=== PATIENT | male | born 1950 | race Caucasian/White ===

== ENCOUNTER 2020-07-08 09:16 | Outpatient (CLI) | payer MEDICARE ==
--- NOTE | 2020-07-08 13:49 | PET ---
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 Exam was requeste d for initial staging. TECHNIQUE: PET scan with CT attenuation correction was performed from the vertex through the proximal thighs fol lowing the intravenous administration of 10 millicuries of 15-fluorodeoxyglycose. COMPARISON: None. CORRELATION: CT neck of 05/20/20. FINDINGS: There is increased FDG localization in the base of the tongue mass with an SUV of 13.5. Mariam hyperme tabolism in the left level IIA lymph nodes has an SUV of 9.4 and the right level IIA lymph nodes have an SUV of 3.6. No mariam hypermetabolism is seen in the chest, axillae, abdomen or pelvis. No hypermetabolic pulmonary nodules, liver, adrenals, skeletal lesions are identified. There is a foc us of intense uptake in the region of the distal stomach/antrum with an SUV of 8.2. Physiologic activity is seen in the brain, GI and tracts. The CT scan used for attenuation correction demonstrates no evidence of pleural effusions, pericardia l effusions, or ascites. There are tiny nonobstructing left renal calculi. IMPRESSION: 1. Base of the tongue malignancy with bilateral level IIA lymph mariam metastases. 2. Focally intense uptake in the gastric antrum should be evaluated with endoscopy. 3. Nonobstructing tiny left renal calculi. POS: PIETER
== END 2020-07-08 09:17 | disposition home or self-care (01) ==
LOC: PET 09:16
PROVIDERS: ATTEND Internal Medicine Hematology & Oncology
DX: C01 Malignant neoplasm of base of tongue (principal); C77.9 Secondary and unspecified malignant neoplasm of lymph node, unspecified; N20.0 Calculus of kidney
CPT/HCPCS: 78815; A9552

== ENCOUNTER 2020-07-15 08:54 | Outpatient (CLI) | payer MEDICARE ==
[2020-07-16 15:08] LABS: SARS-CoV-2 MS2 Positive; SARS-CoV-2 N Gene Negative; SARS-CoV-2 S Gene Negative; SARS-CoV-2 by NAA Not Detected (NotDetected); SARS-CoV-2 orf1ab Negative
== END 2020-07-15 08:55 | disposition home or self-care (01) ==
LOC: LABBT 08:54
PROVIDERS: ATTEND Internal Medicine Gastroenterology
DX: C02.9 Malignant neoplasm of tongue, unspecified (principal); R13.19 Other dysphagia; R93.3 Abnormal findings on diagnostic imaging of other parts of digestive tract; Z98.84 Bariatric surgery status; Z20.828 Contact with and (suspected) exposure to other viral communicable diseases
CPT/HCPCS: 87635; U0003

== ENCOUNTER 2020-07-16 13:05 | Observation (INO) | payer MEDICARE ==
[2020-07-15 12:44] VITALS: BMI 34.4
--- NOTE | 2020-07-16 15:43 | RAD ---
SUPINE ABDOMEN: 07/16/20 HISTORY: Preop. LAP band is noted. Catheter appears intact. Bowel gas pattern unremarkable. No mass effect IMPRESSION: Unremarkable bowel gas pattern. POS: AH
[2020-07-16] MEDS: Lisinopril 20 MG TAB PO SCH (20:23)
[2020-07-16] MEDS: hydrALAZINE 25 MG TAB PO SCH (20:24)
[2020-07-16] MEDS ORDERED: Montelukast Sodium 10 mg Tablet PO SCH (21:00)
[2020-07-16] MEDS ORDERED: Atorvastatin Calcium 20 MG TAB PO SCH (21:00)
[2020-07-17] MEDS ORDERED: Ondansetron HCl/PF 4 MG/2 ML Vial IVP PRN (07:47)
[2020-07-17] MEDS ORDERED: Promethazine HCl 25 MG/ML VIAL IM PRN (07:47)
[2020-07-17] MEDS ORDERED: Morphine Sulfate 2 MG/ML SYRINGE SLOW IVP PRN (07:47)
[2020-07-17] MEDS ORDERED: Promethazine HCl 25 MG/ML VIAL SLOW IVP PRN (07:47)
[2020-07-17] MEDS ORDERED: metFORMIN 500 MG TAB PO SCH (08:00)
[2020-07-17] MEDS ORDERED: Hydrochlorothiazide 25 MG TAB PO SCH (09:00)
[2020-07-17] MEDS ORDERED: Amlodipine 10 MG TAB PO SCH (09:00)
[2020-07-17] MEDS ORDERED: FLU VACC QS2020-21(65YR UP)/PF 240 MCG/0.7 ML SYRINGE IM ONE (09:00)
[2020-07-17] MEDS ORDERED: Morphine 2 MG/ML VIAL SLOW IVP PRN (09:09)
[2020-07-17] MEDS ORDERED: PROPOFOL 200 MG/20 ML VIAL ONE (09:43)
[2020-07-17] MEDS ORDERED: Lidocaine 1% PF 5 ML VIAL ONE (09:43)
[2020-07-17] MEDS: Lisinopril 20 MG TAB PO SCH (09:59)
[2020-07-17] MEDS: hydrALAZINE 25 MG TAB PO SCH (09:59)
[2020-07-17 11:15] VITALS: BP 135/83; TEMP 98.2
[2020-07-17] MEDS ORDERED: Ketorolac Tromethamine 30 MG/ML VIAL ONE (14:25)
[2020-07-17] MEDS ORDERED: Ketorolac Tromethamine 30 MG/ML VIAL IVP PRN (14:42)
--- NOTE | 2020-07-17 16:34 | DIS ---
DATE OF ADMISSION: 07/16/2020 DATE OF DISCHARGE: 07/17/2020 PROCEDURES: EGD with biopsy of Thrasher's, removal of gastric polyp by snare polypectomy x2, and PEG tube placement. HOSPITAL COURSE: Mr. Paige was admitted to 23-hour observation as OR could not get him on the schedule on Sunday afternoon for a PEG tube and EGD. 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 The procedure was performed this morning and the patient did well. He has had teaching for PEG tube use. He does not need that right now, so the plan is for him to go home today, resume his home medicines and see the [facility] when he next follows up there. Precautions for infection, bleeding, pain were all discussed with the patient. He has my phone number and call me if there are any problems over the weekend. Otherwise, he will follow up in the office next week. Pending at time of discharge are his biopsies. Job ID: [id number]
--- NOTE | 2020-07-18 19:44 | OP ---
DATE OF PROCEDURE: 07/17/2020 PREPROCEDURE DIAGNOSES: 1. Pharyngeal cancer with impending need for radiation and chemotherapy, requested a PEG tube by Oncology. 2. PET scan showed enhancement in the stomach. 3. Previous gastric band. POSTPROCEDURE DIAGNOSES: 1. Short-segment Thrasher esophagus, biopsied. 2. A small hemorrhagic polyp, friable in the proximal stomach above the band location, removed by hot snare polypectomy and submitted to Pathology. 3. Smooth mucosa-like polyp below the gastric band along the greater curve of the fundus, removed by hot snare polypectomy and submitted to Pathology. 4. PEG tube placement by Ponsky pull technique under sterile condition. RECOMMENDATIONS: The patient will be taught how to use a PEG tube, care for it, and clean. If he does well, he can go home later today and follow up with dietitian in the outpatient at [facility] when he starts radiation and chemotherapy next week. ANESTHESIA: TIVA. PROCEDURE IN DETAIL: After the patient was informed of the risks, benefits, and possible complications of endoscopy including perforation, reaction to medication, and aspiration, informed consent was obtained. The patient was brought to endoscopy suite, where he was sedated in gradual fashion. Once he was comfortable, a bite block was placed in the incisural orifice. The endoscope was advanced through the esophagus, stomach, and into the second and third portions of the duodenum and slowly removed. The esophagus was normal short-segment Thrasher's, less than 2 cm just above the GE junction. There were no nodules or masses. This was ultimately biopsied and sent to Pathology. Entering the stomach, there was a small pouch of the gastric lumen and then extrinsic compression consistent with history of gastric band. We could pass this easily into the stomach and into the duodenum. The stomach was otherwise normal in forward and retroflexed views except for small fundic gland polyps. There was about a 1.5 cm size polyp in the proximal stomach just below the band and this was removed by hot snare polypectomy. In the gastric pouch above the band, there was a hemorrhagic polyp on stalk, which is about a 1.5 cm in size and mildly hemorrhagic and inflamed and this was removed by hot snare polypectomy and submitted as another specimen. The duodenum was normal. The stomach was otherwise normal. There was good hemostasis. At this time, attention was turned to the abdominal wall, where adequate place for PEG tube placement was identified by transillumination and finger indentation. There was care to take this was away from the area of his previous gastric band tubing and port. Under sterile condition, the PEG tube was placed by Ponsky pull technique. Second-look confirmed good placement. The stomach was desufflated. The scope was removed. The patient was brought to Recovery in stable condition. Job ID: [id number]
== END 2020-07-17 15:25 | disposition home or self-care (01) ==
LOC: SDC 13:05 → SURG A 16:26
PROVIDERS: ADMIT Internal Medicine Gastroenterology; ATTEND Internal Medicine Gastroenterology
PROC: 0DH63UZ Insertion of Feeding Device into Stomach, Percutaneous Approach (ICD-10-PCS; principal; 2020-07-17)
PROC: 0DB68ZZ Excision of Stomach, Via Natural or Artificial Opening Endoscopic (ICD-10-PCS; 2020-07-17)
DX: K31.7 Polyp of stomach and duodenum (principal); C14.0 Malignant neoplasm of pharynx, unspecified; K22.70 Barrett's esophagus without dysplasia; E11.9 Type 2 diabetes mellitus without complications; E78.00 Pure hypercholesterolemia, unspecified; I10 Essential (primary) hypertension; Z79.82 Long term (current) use of aspirin; Z79.84 Long term (current) use of oral hypoglycemic drugs; Z79.899 Other long term (current) drug therapy; Z87.891 Personal history of nicotine dependence; C02.9 Malignant neoplasm of tongue, unspecified
CPT/HCPCS: 43239; 43246; 43251; 74018; 82962; 90662; G0008; 36416; 88305; 88312; 88313; 90471; 96374; G0378; J0690; J1885; J2704

== ENCOUNTER 2020-11-09 08:54 | Outpatient (CLI) | payer MEDICARE ==
--- NOTE | 2020-11-09 13:58 | PET ---
Nuclear medicine FDG PET/CT: (Positron emission tomography and computed tomography) DATE: 11/09/2020 HISTORY: 70-year-old male with malignant neoplasm of base of tongue. Evaluate response to treatment COMPARISON: 07/08/2020 TECHNIQUE: IV injection of F-18 fluorodeoxyglucose (FDG) dose: 11.3 mCi. PET scan and attenuation correction CT performed from skull base to proximal thighs. PET scan and attenuation correction CT thinner slices performed through head and neck. FINDINGS: SUV (standard uptake values) numbers given are maximum SUVs. QCLR used. The previously demonstrated mass at base of tongue (lingual tonsil) with hypermetabolic activity, has either completely or almost completely resolved. Previous SUV was 13.7. Current SUV is 3.3, which may be that of background Waldeyer's ring lymphoid t issue activity. The previously demonstrated necrotic left level 2A lymph node which measured approximately 2 x 2.5 cm in the axial plane currently measures approximately 1.2 x 1.2 cm. Previous SUV 9.2. Current SUV 2.4, below threshold. Previously demonstrated approximately 1 x 2 cm right level 2A lymph node currently measures approxima tely 1 x 1 cm. Previous SUV 3.6. Current SUV 2.4, below threshold. Currently, there is a new finding of multiple bilaterally symmetrical foci of markedly increased upta ke in the neck involving supraclavicular regions (for example left side SUV 8.2) and bilateral lower posterior cervical spaces (for example left side SUV 6.7 and right side 6.6). Because no defini tely enlarged lymph nodes are identified in these regions, it is assumed that this represents brown fat hypermetabolic activity. Similar findings in bilateral axillae. The thyroid nodules are not hypermetabolic. There is a new nonhypermetabolic moderate-sized patch of airspace opacity at the base of left lower l obe consistent with atelectasis. Again noted is the percutaneous gastrostomy tube. Again noted is the LAP-BAND at the gastric cardia. No suspicious areas of avid FDG in the thoracic cavity, abdomen, or pelvis. IMPRESSION: Complete or almost response to therapy. The lingual tonsil (base of tongue) activity is 3.3 SUV curre ntly. This could be that of background Waldeyer's ring lymphoid tissue metabolic activity, or could represent minimal or mild residual neoplastic material. The rest of the body is negative.
== END 2020-11-09 08:55 | disposition home or self-care (01) ==
LOC: PET 08:54
PROVIDERS: ATTEND Internal Medicine Hematology & Oncology
DX: C01 Malignant neoplasm of base of tongue (principal)
CPT/HCPCS: 78815; A9552